=== PATIENT | male | born 1960 | race Caucasian/White ===

== ENCOUNTER 2017-06-12 05:35 | Day surgery (SDC) | payer OTHER, MEDICAID ==
[~2017-06-12 05:35] MED LIST: ASPI325T PO; HYDR12.56 PO; PRIN20TA2 PO; TOPR50TA PO; [UNRECOGNIZED DRUG - CODE] PO
[2017-06-12] MEDS ORDERED: VANCOMYCIN 1 GM/200 ML PREMIX ON-CALL IV SCH (06:00)
[2017-06-12] MEDS ORDERED: MUPIROCIN 2% OINT 1 APPLIC/GM SYR NASAL SCH (06:00)
[2017-06-12] MEDS ORDERED: CHLORHEXIDINE GLUCONATE 2 % 1 PACK (2 CLOTHS) TOPICAL SCH (06:00)
[2017-06-12] MEDS ORDERED: NS 1000 ML IV SCH (06:00)
[2017-06-12] MEDS ORDERED: POVIDONE IODINE 5% (ANTISEPSIS KIT) 4 APPLICATIONS EACH NARE SCH (06:00)
[2017-06-12] MEDS ORDERED: VANCOMYCIN HCL 1000 MG VIAL ONE (06:41)
[2017-06-12] MEDS ORDERED: SODIUM CHLOR 0.9% 250 ML INJ 250 ML ONE (06:42)
[2017-06-12] MEDS ORDERED: MIDAZOLAM HCL 5 MG/ML VIAL (1 ML) ONE (06:51)
[2017-06-12] MEDS ORDERED: METF850T PO (06:58)
[2017-06-12] MEDS ORDERED: CLOP75TA PO (06:58)
[2017-06-12] MEDS ORDERED: LISI-515 PO (06:58)
[2017-06-12] MEDS ORDERED: HYDR12.57 PO (06:58)
[2017-06-12] MEDS ORDERED: METO25TA3 PO (06:58)
[2017-06-12] MEDS ORDERED: ROPI0.25 PO (06:58)
[2017-06-12] MEDS ORDERED: OMEP20TA93 PO (06:58)
[2017-06-12] MEDS ORDERED: TOPI100 PO (06:58)
[2017-06-12] MEDS ORDERED: LOVA40TA PO (06:58)
[2017-06-12] MEDS ORDERED: SERT-132 PO (06:58)
[2017-06-12] MEDS ORDERED: benadryl PO (06:58)
[2017-06-12] MEDS ORDERED: LIDOCAINE HCL 1% PF 30 ML VIAL ONE (07:00)
--- NOTE | 2017-06-12 07:57 | MA ---
cc: Linus Kerr MD DATE: 06/12/2017 INDICATION: CVA. PROCEDURES PERFORMED: 1. 15 minutes of moderate IV sedation. 2. Loop recorder insertion. DESCRIPTION OF PROCEDURE: The patient was brought to the DOC Unit in the postabsorptive state. After informed consent was obtained, 2 mg of Versed was given for moderate IV sedation. Next, a [employer] LIN[employer] loop recorder was inserted subcutaneously in the left chest. The patient tolerated the procedure well without any apparent complications. Tachybrady pause and atrial fibrillation detection was enabled. The initial R-wave was 0.26 millivolts. The serial number was [id number]. Linus Kerr MD [facility]/DL , 07:40 AM , 07:56 AM
[2017-06-13] MEDS ORDERED: DIPH50CA PO (10:24)
== END 2017-06-12 09:27 | disposition home or self-care (01) ==
LOC: HDOC 05:35 → HDIC 05:37 → HDOC 09:27
PROVIDERS: ATTEND Nuclear Medicine Nuclear Cardiology
DX: I63.9 Cerebral infarction, unspecified (principal); I11.9 Hypertensive heart disease without heart failure; I35.1 Nonrheumatic aortic (valve) insufficiency; R94.31 Abnormal electrocardiogram [ECG] [EKG]; E78.5 Hyperlipidemia, unspecified
CPT/HCPCS: 33282; 99152; C1764; J2250; J3010; J3370; J7030; J7050